=== PATIENT | male | born 2000 | race Hispanic/Latino ===

== ENCOUNTER 2023-07-10 16:24 | Emergency (ER) | payer SELFPAY ==
--- NOTE | ~2023-07-10 | XR_ITS ---
XR foot RT min 3V DATE: 07/10/2023 17:14 INDICATION: Fall off of ladder. Pain, swelling TECHNIQUE: 4 views COMPARISON: None FINDINGS: Linear talar fracture extending into the talar dome and tibiotalar joint, without apparent displacement or angulation. No other fracture or dislocation is evident. IMPRESSION: Intra-articular talar fracture Reviewed, dictated and finalized at location A.
--- NOTE | ~2023-07-10 | XR_ITS ---
XR ankle RT min 3V DATE: 07/10/2023 17:14 INDICATION: Fall off of ladder. Right ankle and foot injury TECHNIQUE: 4 views COMPARISON: 07/10/2023 right foot FINDINGS: There is an intra-articular fracture of the talus, without apparent significant displacemen t or angulation. The fracture extends into the tibiotalar joint. There also may extend into the subta lar joint. There is very prominent soft tissue swelling of the ankle particularly laterally. The medial, lateral and posterior malleoli appear intact. Ankle mortise appears preserved. No other fracture or dislocation is evident. IMPRESSION: Nondisplaced intra-articular fracture of the talus; consider CT examination of the right ankle and foot Prominent ankle soft tissue swelling, especially laterally Reviewed, dictated and finalized at location A. IMPRESSION: Nondisplaced intra-articular fracture of the talus; consider CT exa mination of the right ankle and foot Prominent ankle soft tissue swelling, especially laterally
[2023-07-10 16:42] VITALS: BP 118/66; PULSE 81; RESP 16; TEMP 37.6; O2SAT 100
[2023-07-10 16:56] VITALS: BP 118/66; PULSE 81; RESP 16; TEMP 37.6; O2SAT 100
--- NOTE | 2023-07-10 17:26 | ED.LOWEXIN ---
HPI - Extremity Injury (Lower) General Chief Complaint: Extremity Injury, Lower Stated Complaint: Fall Time Seen by Provider: 07/10/23 17:05 Source: patient, family, RN notes reviewed and old records reviewed Mode of arrival: ambulatory Limitations: language barrier and other (sole ruffer services used) History of Present Illness HPI Narrative: 23-year-old male fell off 6 ft ladder today and landed on his lateral ankle and foot with pain and swelling to the lateral ankle and foot. Patient states pain 10/10 when he tries to apply any weight-bearing on his right foot with no acute pain at rest. Patient states that he has taken some ibuprofen for his pain. Patient has noted swelling to the left lateral ankle and foot. Patient is healthy adult with no history of medical problems. Patient does not speak [place] sole ruffer services used for visit. MD complaint: ankle injury and foot injury Onset (ago): hour(s) (this afternoon) Injury: Right: ankle (lateral) and foot (lateral) Place: work Exacerbating factors: weight bearing and movement Treatments prior to arrival: NSAIDS Related Data Home Medications Medication Instructions Recorded Confirmed No Home Medications 07/10/23 07/10/23 Allergies Allergy/AdvReac Type Severity Reaction Status Date / Time No Known Allergies Allergy Verified 07/10/23 16:55 Course Course Level of Care: Express Care Visit Vital Signs Vital signs: Vital Signs Temperature 37.6 C H 07/10/23 16:42 Pulse Rate 81 07/10/23 16:42 Respiratory Rate 16 07/10/23 16:42 Blood Pressure 118/66 07/10/23 16:42 Pulse Oximetry 100 07/10/23 16:42 Oxygen Delivery Room Air 07/10/23 16:42 Temperature 37.6 C H 07/10/23 16:56 Pulse Rate 81 07/10/23 16:56 Respiratory Rate 16 07/10/23 16:56 Blood Pressure 118/66 07/10/23 16:56 Pulse Oximetry 100 07/10/23 16:56 Oxygen Delivery Room Air 07/10/23 16:56 Procedures Orthopedic Splinting/Casting right ankle: Splinting/Casting Date: 07/10/23 Splinting/Casting Time: 18:31 Side: right Lower Extremity Injury Location: ankle Lower Extremity Immobilizer: posterior splint Splint: customized in ED OCL: short leg Pre-Procedure Neuro Vascular Exam: normal Post-Procedure Neuro Vascular Exam: normal Other Orthopedic Equipment: crutches Additional Comments: posterior short leg splint applied to right ankle and crutch instruction with return demonstration with NWB right leg achieved. Post procedure circulation intact MDM - Extremity Injury (Lower) Differential Diagnosis Differential diagnosis: Likely ankle sprain and strain, ankle fracture and other (talus fracture, soft tissue swelling of right ankle) Medical Records Attestation: I reviewed the patient's medical records. Imaging Data Attestation: I personally reviewed and interpreted this imaging study as follows: My impression: non- displaced intra articular fracture of the talus,PROMINENT soft tissue swelling of right lateral ankle Radiologist's impression: [facility] [address] [place] [address] XRay Report Signed Patient: Nathaniel Bolton : 2000 MR#: [id number] Age/Sex: 23 / M Acct:[id number] Loc: [facility]? ? ADM Date: 07/10/23Attending Dr: Ordering Physician: Shasha Vicente APRN Date of Service: 07/10/23 Procedure(s): XR foot RT min 3V Accession Number(s): [id number] cc: Shasha Vicente APRN~ XR foot RT min 3V DATE: 07/10/2023 17:14 INDICATION: Fall off of ladder. Pain, swelling? TECHNIQUE: 4 views? COMPARISON: None? FINDINGS: Linear talar fracture extending into the talar dome and tibiotalar joint, without apparent displacement or angulation. No other fracture or dislocation is evident.? IMPRESSION: Intra-articular talar fracture? Reviewed, dictated and finalized at loca
== END 2023-07-10 18:40 | disposition home or self-care (01) ==
PROVIDERS: Emergency Provider Registered Nurse
DX: S92.101A Unspecified fracture of right talus, initial encounter for closed fracture (principal); W11.XXXA Fall on and from ladder, initial encounter; Y99.0 Civilian activity done for income or pay
CPT/HCPCS: 29515; 73610; 73630; 99214; G0463